=== PATIENT | female | born 1995 | race Caucasian/White ===

== ENCOUNTER 2018-05-19 13:47 | Emergency (ER) | payer MEDICAID ==
--- NOTE | 2018-05-19 14:18 | EDPHY ---
H & P Stated Complaint: Fall down Stairs this morning @ 0430 .Hurt both ankles and right Knee. Time Seen by Provider: 05/19/18 14:05 HPI/ROS: Chief Complaint: Knee and ankle pain status post fall HPI: 22-year-old obese woman fell down 3 stairs this morning when she lost her footing in the dark. Patient struck her right knee and twisted both ankles. She has been ambulating with some discomfort since that time. She did sustain an abrasion to the front of her knee. She is complaining of pain in the medial posterior portion of her knee. No prior injuries. She did not hit her head. No loss of consciousness. Is without other complaints at this time. ROS: 10 systems were reviewed and were negative except those elements noted in the HPI. PMH: Denies Social History: No smoking, no alcohol, no recreational drug use Family History: non-contributory Physical Exam: Gen: Awake, Alert, No Distress HEENT: Nose: no rhinorrhea Eyes: PERRLA, EOMI Mouth: Moist mucosa Neck: Supple, no JVD Chest: nontender, lungs clear to auscultation Heart: S1, S2 normal, no murmur Abd: Obese, Soft, non-tender, no guarding Back: no CVA tenderness, no midline tenderness Ext: no edema, there is an abrasion inferior to right patella. She has no bony tenderness. There is tenderness to the MCL with straining. She is able to bend past 90. There is no drawer sign. There is no pain with loading of the menisci. Right ankle is nontender, full range of motion without pain. Left ankle. There is very minimal soft tissue tenderness in the medial aspect of the calcaneus. She has no tenderness with loading of the inferior or lateral or posterior calcaneus. She has full range of motion without pain. She has no other bony tenderness. Skin: no rash Neuro: CN II-XII intact, Sensation grossly intact, Strength 5/5 in bilateral upper and lower extremities - Personal History LMP (Females 10-55): 22-28 Days Ago Current Tetanus Diphtheria and Acellular Pertussis (TDAP): Yes Tetanus Vaccine Date: 2013 - Medical/Surgical History Hx Asthma: No Hx Chronic Respiratory Disease: No Hx Diabetes: No Hx Cardiac Disease: No Hx Renal Disease: No Hx Cirrhosis: No Hx Alcoholism: No Hx HIV/AIDS: No Hx Splenectomy or Spleen Trauma: No Other PMH: BRONCHITIS, DEPRESSION, ANXIETY, ADD/ADHD, BIPOLAR, TONSILLECTOMY, PILONIDAL CYST - Social History Smoking Status: Former smoker Constitutional: Initial Vital Signs Temperature (C) 37.1 C 05/19/18 13:53 Heart Rate 90 05/19/18 13:53 Respiratory Rate 16 05/19/18 13:53 Blood Pressure 100/64 05/19/18 13:53 O2 Sat (%) 95 05/19/18 13:53 O2 Delivery Mode Room Air Allergies/Adverse Reactions: latex [Latex] Allergy (Verified 05/19/18 13:59) Itching nickel [Nickel] Allergy (Verified 05/19/18 13:59) Rash pertussis vaccine,fluid [Pertussis Vaccine,Fluid] Allergy (Verified 05/19/18 13: 59) ANAPH Home Medications: Medication Instructions Recorded NK [No Known Home Meds] 05/19/18 Medical Decision Making - Data Points Medications Given: Discontinued Medications Ibuprofen (Motrin) 600 mg PO EDNOW ONE Stop: 05/19/18 14:27 Last Admin: 05/19/18 14:31 Dose: 600 mg Departure - Departure Disposition: Home, Routine, Self-Care Clinical Impression: Abrasion, Contusion, Knee sprain Condition: Good Instructions: Knee Sprain (ED), R.I.C.E. Treatment (ED), Abrasion (ED) Additional Instructions: You may alternate ibuprofen with acetaminophen as needed for pain. Follow up with orthopedic surgeon in 4-5 days if symptoms are not improving. Referrals: NONE *PRIMARY CARE P,. [Primary Care Provider] - As per Instructions Antoine Novoa MD [Medical Doctor] - As per Instructions
[2018-05-19] MEDS ORDERED: IBUPROFEN 600 MG TAB PO ONE (14:26)
[2018-05-19 15:06] VITALS: BP 110/65
== END 2018-05-19 15:05 | disposition home or self-care (01) ==
LOC: CED 13:47
DX: S83.91XA Sprain of unspecified site of right knee, initial encounter (principal); W10.9XXA Fall (on) (from) unspecified stairs and steps, initial encounter
CPT/HCPCS: 73562-PO

== ENCOUNTER 2018-06-29 09:25 | Emergency (ER) | payer MEDICAID ==
[2018-06-29 09:35] VITALS: BP 97/65
--- NOTE | 2018-06-29 09:54 | EDPHY ---
H & P Time Seen by Provider: 06/29/18 09:41 HPI/ROS: This patient complains of cold symptoms. She explains that she developed no nasal congestion on Friday, 3 days prior to arrival which has persisted and is bothersome to her. She has associated myalgias primarily in the neck which are [id number]. She also describes a feeling of being cold at times but denies any high fevers. She reports the 1st day the ulna she had a mild sore throat which has since resolved. She feels partial improvement from over-the- counter flu and cold medicine with no other exacerbating factors. She came in by private vehicle for evaluation. ROS: Constitutional: No high fevers or chills. No significant fatigue. HEENT: No ear pain. No difficulty swallowing food Pulmonary: No cough shortness of breath GI: No abdominal pain, nausea vomiting diarrhea Integumentary: No skin rash Neuro: No headache or other complaints 7 point review of symptoms is performed and otherwise negative with exception of pertinent positives and negatives listed in HPI and ROS Past Medical/Surgical History: Otherwise healthy Smoking Status: Former smoker Physical Exam: Physical Exam Vital signs are normal. General: No acute distress HEENT: Nose: Clear discharge bilaterally. No sinus tenderness to percussion. Ears: External canals and tympanic membranes are clear with no erythema or abnormal findings bilaterally. Oropharynx: No erythema or exudates. No dysphonia. No drooling or stridor. Eyes: Pupils equal and react to light. Extraocular motions are intact. Neck: Supple with no meningismus. No lymphadenopathy Lungs: Clear to auscultation bilaterally with no rales, rhonchi or wheeze. No respiratory distress. Cardiac: Regular rate and rhythm with no murmur gallop or rub Skin: No rash or pallor. Neuro: Alert with no focal deficits noted. Initial differential diagnosis: Viral URI, doubt sinusitis, seasonal allergies Constitutional: Initial Vital Signs Temperature (C) 37.0 C 06/29/18 09:31 Heart Rate 76 06/29/18 09:31 Respiratory Rate 18 06/29/18 09:31 Blood Pressure 97/65 L 06/29/18 09:31 O2 Sat (%) 95 06/29/18 09:31 O2 Delivery Mode Room Air Allergies/Adverse Reactions: latex [Latex] Allergy (Verified 06/29/18 09:30) Itching nickel [Nickel] Allergy (Verified 06/29/18 09:30) Rash pertussis vaccine,fluid [Pertussis Vaccine,Fluid] Allergy (Verified 06/29/18 09: 30) ANAPH Home Medications: Medication Instructions Recorded Fluticasone Nasal [Flonase Nasal 2 sprays NASAL DAILY #1 mdi 06/29/18 [place]] MDM/Departure - MDM ED Course/Re-evaluation: Patient's findings are consistent with viral URI. Counseled regarding this. No clinical evidence to suggest [employer] infection, bacterial sinusitis or other complicating factors. - Depart Disposition: Home, Routine, Self-Care Clinical Impression: Viral URI Condition: Good Instructions: Upper Respiratory Infection (ED) Additional Instructions: Diagnosis: Viral upper respiratory infection Plan: Flonase steroid nasal spray Ibuprofen for aches pains and fevers Drink plenty fluids and rest. Symptoms should resolve within 5-10 days of their onset. Follow up with primary care physician for any ongoing symptoms beyond that time frame. Return if you developed significant worsening of yourr symptoms despite treatment plan Stand Alone Forms: Work Excuse Prescriptions: Fluticasone Nasal [Flonase Nasal [place]] 2 sprays NASAL DAILY #1 mdi Referrals: NONE *PRIMARY CARE P,. [Primary Care Provider] - As per Instructions Ramila Schumacher MD [Medical Doctor] - As per Instructions
== END 2018-06-29 10:00 | disposition home or self-care (01) ==
LOC: CED 09:25
DX: J06.9 Acute upper respiratory infection, unspecified (principal); Z87.891 Personal history of nicotine dependence

== ENCOUNTER 2018-07-15 13:48 | Emergency (ER) | payer MEDICAID ==
[2018-07-15 13:58] VITALS: BP 105/80
[2018-07-15] MEDS ORDERED: ONDANSETRON DISINTEGRATING 4 MG TAB PO ONE (14:01)
[2018-07-15] MEDS ORDERED: IBUPROFEN 600 MG TAB PO ONE (14:01)
--- NOTE | 2018-07-15 14:20 | EDPHY ---
H & P Stated Complaint: L lower abdomen red, painful bump x 1 day Time Seen by Provider: 07/15/18 14:10 HPI/ROS: CHIEF COMPLAINT: Abscess HISTORY OF PRESENT ILLNESS: Patient is a 22-year-old obese female who comes to the emergency department complaining of a small abscess to her left lower abdominal wall. She 1st noticed it yesterday. She has had similar abscesses before. They have been incised and drained, Usually she has not required any antibiotics. No fevers. Severity: Moderate Modifying factors: None REVIEW OF SYSTEMS: Constitutional: denies: chills, fever, recent illness, recent injury EENTM: denies: blurred vision, double vision, nose congestion Respiratory: denies: cough, shortness of breath Cardiac: denies: chest pain, irregular heart rate, lightheadedness, palpitations Gastrointestinal/Abdominal: denies: abdominal pain, diarrhea, nausea, vomiting, blood streaked stools Genitourinary: denies: dysuria, frequency, hematuria, pain Musculoskeletal: denies: joint pain, muscle pain Skin: See HPI Neurological: denies: headache, numbness, paresthesia, tingling, dizziness, weakness Hematologic/Lymphatic: denies: blood clots, easy bleeding, easy bruising Immunologic/allergic: denies: HIV/AIDS, transplant 10 systems reviewed and negative except as noted EXAM: GENERAL: Well-appearing, well-nourished and in no acute distress. HEAD: Atraumatic, normocephalic. EYES: Pupils equal round and reactive to light, extraocular movements intact, sclera anicteric, conjunctiva are normal. ENT: TMs normal, nares patent, oropharynx clear without exudates. Moist mucous membranes. NECK: Normal range of motion, supple without lymphadenopathy or JVD. LUNGS: Breath sounds clear to auscultation bilaterally and equal. No wheezes rales or rhonchi. HEART: Regular rate and rhythm without murmurs, rubs or gallops. ABDOMEN: Soft, nontender, normoactive bowel sounds. No guarding, no rebound. No masses appreciated. BACK: No CVA tenderness, no spinal tenderness, step-offs or deformities EXTREMITIES: Normal range of motion, no pitting or edema. No clubbing or cyanosis. NEUROLOGICAL: Cranial nerves II through XII grossly intact. Normal speech, normal gait. 5/5 strength, normal movement in all extremities, normal sensation , normal reflexes PSYCH: Normal mood, normal affect. SKIN: Small fluctuant abscess left lower abdominal wall. Minimal surrounding erythema. Source: Patient Exam Limitations: No limitations - Personal History LMP (Females 10-55): Extended Cycle BCP/Inj Current Tetanus Diphtheria and Acellular Pertussis (TDAP): Yes Tetanus Vaccine Date: 2013 - Medical/Surgical History Hx Asthma: No Hx Chronic Respiratory Disease: No Hx Diabetes: No Hx Cardiac Disease: No Hx Renal Disease: No Hx Cirrhosis: No Hx Alcoholism: No Hx HIV/AIDS: No Hx Splenectomy or Spleen Trauma: No Other PMH: DEPRESSION, ANXIETY, ADD/ADHD, BIPOLAR, TONSILLECTOMY, PILONIDAL CYST - Family History Significant Family History: No pertinent family hx - Social History Smoking Status: Former smoker Alcohol Use: Sober Drug Use: None Constitutional: Initial Vital Signs Temperature (C) 36.9 C 07/15/18 13:53 Heart Rate 81 07/15/18 13:53 Respiratory Rate 16 07/15/18 13:53 Blood Pressure 105/80 07/15/18 13:53 O2 Sat (%) 97 07/15/18 13:53 O2 Delivery Mode Room Air Allergies/Adverse Reactions: latex [Latex] Allergy (Verified 07/15/18 13:53) Pt reports rash and Itching nickel [Nickel] Allergy (Verified 07/15/18 13:53) Pt reports Rash pertussis vaccine,fluid [Pertussis Vaccine,Fluid] Allergy (Verified 07/15/18 13: 53) Pt reports ANAPHylaxis Home Medications: Medication Instructions Recorded NK [No Known Home Meds] 07/15/18 Medical Decision Making Procedures: Procedure: Abscess drainage. The patient's abscess was located on the abdomen. I obtained verbal consent from the patient to drain the abscess who was informed about the possibility of bleeding and pain. The abscess was incised with 11 blade scalpel and small amount of purulent drainage was expressed. I irrigated the wound and placed some packing. The patient tolerated the procedure well. The procedure was performed by myself. ED Course/Re-evaluation: Patient tolerated the procedure well. She was packed. We discussed wound care. I do not think she requires antibiotics at this time and she would like to avoid them. We discussed indications for returning and possibly starting antibiotics. The patient declines further workup or testing at this time. Differential Diagnosis: Partial list of the Differential diagnosis considered include but were not limited to; abscess, cellulitis and although unlikely based on the history and physical exam, I also considered foreign body, IV drug abuse, intra-abdominal infection. I discussed these differential diagnoses and the plan with the patient as well as the usual and expected course. The patient understands that the diagnosis is provisional and that in medicine we are not always correct and that further workup is often warranted. Usual and customary warnings were given. All of the patient's questions were answered. The patient was instructed to return to the emergency department should the symptoms at all worsen or return, otherwise to followup with the physician as we discussed. - Data Points Medications Given: Discontinued Medications Ibuprofen (Motrin) 600 mg PO EDNOW ONE Stop: 07/15/18 14:02 Last Admin: 07/15/18 14:03 Dose: 600 mg Ondansetron HCl (Zofran Odt) 4 mg PO EDNOW ONE Stop: 07/15/18 14:02 Last Admin: 07/15/18 14:03 Dose: 4 mg Departure - Departure Disposition: Home, Routine, Self-Care Clinical Impression: Abscess of skin of abdomen Condition: Fair Instructions: Abscess (ED) Referrals: NONE *PRIMARY CARE P,. [Primary Care Provider] - 2-3 days, if not improved
== END 2018-07-15 14:35 | disposition home or self-care (01) ==
LOC: CED 13:48
PROC: 0H97XZZ Drainage of Abdomen Skin, External Approach (ICD-10-PCS; principal; 2018-07-15)
DX: L03.311 Cellulitis of abdominal wall (principal); E66.9 Obesity, unspecified; Z68.42 Body mass index [BMI] 45.0-49.9, adult; F31.9 Bipolar disorder, unspecified; F41.9 Anxiety disorder, unspecified; Z87.891 Personal history of nicotine dependence

== ENCOUNTER 2018-09-03 08:16 | Emergency (ER) | payer MEDICAID ==
[2018-09-03] MEDS ORDERED: NS 1,000 ML IV ONE (08:46)
[2018-09-03] MEDS ORDERED: METOCLOPRAMIDE 10 MG/2 ML VIAL IVP ONE (08:46)
--- NOTE | 2018-09-03 08:46 | EDPHY ---
H & P Time Seen by Provider: 09/03/18 08:33 HPI/ROS: CHIEF COMPLAINT: Migraine headache HISTORY OF PRESENT ILLNESS: Patient states she has a bad migraine that started about 2 days ago. She says she does not have any of her sumatriptan which she usually uses. She states she has had migraines since the age of 16 and this feels like a normal migraine. She did try to contact her primary care physician at [facility] and has a follow-up appointment on September 07. She said she had 1 episode of vomiting today and nausea. She says she has felt chills but no fevers. She also states that last week she had something like"the flu "with vomiting, aches, chills, postnasal drip, sore throat. She says most of this is better although she still has a mild cough. She denies weakness, numbness or tingling, vision changes. She has some photophobia. Contents of 10 point review of systems otherwise negative except for what is mentioned in HPI. General Appearance: Alert, no distress. Eyes: Pupils equal and round no pallor or injection. ENT, Mouth: Mucous membranes moist. Respiratory: There are no retractions, lungs are clear to auscultation. Cardiovascular: Regular rate and rhythm. Gastrointestinal: Abdomen is soft and nontender, no masses, bowel sounds normal. Neurological: Awake, alert, cranial nerves intact, normal strength and sensation all 4 extremities. Normal gait. Skin: Warm and dry, no rashes. Musculoskeletal: Neck is supple nontender. Extremities are symmetrical, full range of motion, no edema. Psychiatric: Patient is oriented X 3, there is no agitation. Medical/surgical history: Migraines, attention deficit hyperactivity disorder, anxiety, depression, bipolar disorder. Surgeries for tonsillectomy and pilonidal cyst. Social history: Denies tobacco, drugs, EtOH. Currently homeless staying at the [facility] homeless senior living. Works at [employer]. Smoking Status: Former smoker Constitutional: Initial Vital Signs Temperature (C) 36.7 C 09/03/18 08:23 Heart Rate 98 09/03/18 08:23 Respiratory Rate 16 09/03/18 08:23 Blood Pressure 108/71 09/03/18 08:23 O2 Sat (%) 95 09/03/18 08:23 O2 Delivery Mode Room Air Allergies/Adverse Reactions: latex [Latex] Allergy (Verified 09/03/18 08:21) Pt reports rash and Itching nickel [Nickel] Allergy (Verified 09/03/18 08:21) Pt reports Rash pertussis vaccine,fluid [Pertussis Vaccine,Fluid] Allergy (Verified 09/03/18 08: 21) Pt reports ANAPHylaxis Home Medications: Medication Instructions Recorded Antianxiety/Insomnia Med 09/03/18 Nexplanon 09/03/18 Vyvanse 09/03/18 Medical Decision Making ED Course/Re-evaluation: 9:30 a.m. Re-evaluation finds patient sleeping soundly. Differential Diagnosis: Differential diagnosis includes but is not limited to migraine headache, other headache, viral syndrome, meningitis, subarachnoid hemorrhage. After evaluation patient without signs and symptoms of serious cause for her head ache. No fever, neuro deficits, not worse headache of her life. Treated with typical headache cocktail with good response. Observed for short period of time with reasonable resolution of her symptoms. She will follow up with her primary care doctor for refills of her anxiety and headache medications. Understands return precautions. Stable for discharge. - Data Points Medications Given: Discontinued Medications Diphenhydramine HCl (Benadryl Injection) 50 mg IVP EDNOW ONE Stop: 09/03/18 08:47 Last Admin: 09/03/18 09:04 Dose: 50 mg Sodium Chloride (Ns) 1,000 mls @ 0 mls/hr IV ONCE ONE; Wide Open PRN Reason: Protocol Stop: 09/03/18 08:47 Last Admin: 09/03/18 09:00 Dose: 1,000 mls Metoclopramide HCl (Reglan Injection) 10 mg IVP EDNOW ONE Stop: 09/03/18 08:47 Last Admin: 09/03/18 09:10 Dose: 10 mg Departure - Departure Clinical Impression: Migraine Qualifiers: Migraine type: unspecified Status migrainosus presence: without status migrainosus Intractability: not intractable Qualified Code(s): G43.909 - Migraine, unspecified, not intractable, without status migrainosus Condition: Good Instructions: Migraine Headache (ED) Additional Instructions: Follow-up with your [facility] care [facility] at [facility] as scheduled for refill of your prescription medications. Try to rest today, drink plenty of fluids, you can use ibuprofen and Tylenol for pain as well. Return for fevers, intractable vomiting or other new concerns. Referrals: NONE *PRIMARY CARE P,. [Primary Care Provider] - As per Instructions [facility]. [Clinic] - As per Instructions
[2018-09-03 10:08] VITALS: BP 99/56
== END 2018-09-03 10:06 | disposition home or self-care (01) ==
LOC: CED 08:16
DX: G43.909 Migraine, unspecified, not intractable, without status migrainosus (principal); E86.9 Volume depletion, unspecified
CPT/HCPCS: 96361-ER; 96374-ER; 96375-ER; 99284-ER; J1200; J2765

== ENCOUNTER 2018-09-06 09:46 | Emergency (ER) | payer MEDICAID ==
[2018-09-06 09:56] VITALS: BP 105/72
[2018-09-06] MEDS ORDERED: ONDANSETRON DISINTEGRATING 4 MG TAB PO ONE (10:11)
--- NOTE | 2018-09-06 10:38 | EDPHY ---
H & P Time Seen by Provider: 09/06/18 10:02 HPI/ROS: This patient reports more than 10 days of cold symptoms consisting of nasal congestion, occasional cough she attributes to postnasal drip and now over the past 2 days a sore throat of moderate intensity with associated odynophagia. She reports vomiting this morning that she attributes to gagging from coughing but also does have some nausea. She has ongoing nausea currently. ROS: Constitutional subjective fevers but no chills. HEENT: No sinus pain or ear pain Pulmonary: She describes mild wheezing at times. No pleuritic pain or hemoptysis. Cardiovascular: No lightheadedness. GI: No abdominal pain except for mild epigastric discomfort after vomiting. The normal bowel movements. Integumentary: No rash 7 point review of symptoms is performed and otherwise negative with exception of pertinent positives and negatives listed in HPI and ROS Social History: She smokes marijuana. No other drug use. Occasional alcohol. Smoking Status: Former smoker Physical Exam: Physical Exam Vital signs are normal. General: No acute distress HEENT: Nose: Clear discharge bilaterally. No sinus tenderness to percussion. Ears: External canals and tympanic membranes are clear with no erythema or abnormal findings bilaterally. Oropharynx: No erythema or exudates. No dysphonia. No drooling or stridor. Eyes: Pupils equal and react to light. Extraocular motions are intact. Neck: Supple with no meningismus. No lymphadenopathy Lungs: Clear to auscultation bilaterally with no rales, rhonchi or wheeze. No respiratory distress. Cardiac: Regular rate and rhythm with no murmur gallop or rub Skin: No rash or pallor. Neuro: Alert with no focal deficits noted. Initial differential diagnosis: URI with vomiting, influenza, doubt bronchitis Constitutional: Initial Vital Signs Temperature (C) 37.1 C 09/06/18 09:52 Heart Rate 106 H 09/06/18 09:52 Respiratory Rate 20 09/06/18 09:52 Blood Pressure 105/72 09/06/18 09:52 O2 Sat (%) 94 09/06/18 09:52 O2 Delivery Mode Room Air Allergies/Adverse Reactions: latex [Latex] Allergy (Verified 09/03/18 08:21) Pt reports rash and Itching nickel [Nickel] Allergy (Verified 09/03/18 08:21) Pt reports Rash pertussis vaccine,fluid [Pertussis Vaccine,Fluid] Allergy (Verified 09/03/18 08: 21) Pt reports ANAPHylaxis Home Medications: Medication Instructions Recorded Antianxiety/Insomnia Med 09/03/18 Nexplanon 09/03/18 Vyvanse 09/03/18 Fluticasone Nasal [Flonase Nasal 2 sprays NASAL DAILY #1 mdi 09/06/18 [facility] (RX)] Ondansetron Odt [Zofran Odt] 4 - 8 mg PO Q4PRN PRN #4 tab 09/06/18 MDM/Departure - MDM Diagnostics: POC rapid influenza is negative Medications Given: Discontinued Medications Ibuprofen (Motrin) 600 mg PO EDNOW ONE Stop: 09/06/18 11:08 Last Admin: 09/06/18 11:17 Dose: 600 mg Ondansetron HCl (Zofran Odt) 4 mg PO EDNOW ONE Stop: 09/06/18 10:12 Last Admin: 09/06/18 10:14 Dose: 4 mg ED Course/Re-evaluation: Zofran ODT with resolution of nausea vomiting. Ibuprofen p.o. For aches with some improvement Her rapid influenza is negative. Discussion: Patient with viral URI with cough and vomiting-ruled out influenza , no clinical evidence to suggest lower respiratory infection or other"red flag findings". However, patient understands need to return emergency department should she develop significant worsening symptoms despite treatment plan of Flonase nasal spray, Zofran for nausea vomiting [id number] analgesics. - Depart Disposition: Home, Routine, Self-Care Clinical Impression: Viral URI Vomiting Qualifiers: Vomiting type: unspecified Vomiting Intractability: non-intractable Nausea presence: with nausea Qualified Code(s): R11.2 - Nausea with vomiting, unspecified Condition: Good Instructions: Upper Respiratory Infection (ED), Acute Nausea and Vomiting (ED) Additional Instructions: Diagnosis: 1. Viral URI 2. Vomiting You're influenza test is negative. Plan: Drink plenty fluids Light diet until he feel improved Zofran for nausea or vomiting Ibuprofen and/ or Tylenol for aches and pains as needed Return for any significant worsening despite the treatment plan Prescriptions: Fluticasone Nasal [Flonase Nasal [facility] (RX)] 2 sprays NASAL DAILY #1 mdi Ondansetron Odt [Zofran Odt] 4 - 8 mg PO Q4PRN PRN #4 tab PRN Reason: Vomiting Referrals: [facility]HEUS FLORES,. [Primary Care Provider] - As per Instructions
[2018-09-06] MEDS ORDERED: IBUPROFEN 600 MG TAB PO ONE (11:07)
== END 2018-09-06 11:27 | disposition home or self-care (01) ==
LOC: CED 09:46
DX: B34.9 Viral infection, unspecified (principal)
CPT/HCPCS: 99283-ER